=== PATIENT | male | born 1975 | race Caucasian/White ===

== ENCOUNTER 2021-12-16 09:57 | Emergency (ER) | payer MEDICAID, SELFPAY ==
[2021-12-16] MEDS ORDERED: HYDROcodone/Acetaminophen 10/325 mg Tablet ONE (10:40)
== END 2021-12-16 10:50 | disposition home or self-care (01) ==
LOC: BURERS 09:57
DX: S52.201A Unspecified fracture of shaft of right ulna, initial encounter for closed fracture (principal); F17.210 Nicotine dependence, cigarettes, uncomplicated; X58.XXXA Exposure to other specified factors, initial encounter
CPT/HCPCS: 29125